=== PATIENT | female | born 1990 | race Two or more races ===

== ENCOUNTER 2020-10-24 08:22 | Outpatient (CLI) | payer OTHER | END 2020-10-24 08:27 | disposition home or self-care (01) | LOC: RX STUDY 08:22 | PROVIDERS: ATTEND General Practice | DX: K59.01 Slow transit constipation (principal) ==

== ENCOUNTER 2020-11-06 14:44 | Outpatient (CLI) | payer OTHER | END 2020-11-10 14:53 | disposition home or self-care (01) | LOC: RX STUDY 14:44 | PROVIDERS: ATTEND General Practice | DX: K59.01 Slow transit constipation (principal) ==